=== PATIENT | female | born 1995 | race Caucasian/White ===

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

== ENCOUNTER 2017-03-29 23:59 | Emergency (ER) | payer BC ==
[2017-03-30 00:11] VITALS: BP 121/48
[2017-03-30] MEDS ORDERED: Sodium Chloride 0.9% 1,000 ML IV ONE (00:19)
[2017-03-30] MEDS ORDERED: Ondansetron 4 MG/2 ML SDV IVPUSH ONE (00:19)
--- NOTE | 2017-03-30 00:23 | EDM.PDOC ---
ED HPI GENERAL MEDICAL PROBLEM - General Chief Complaint: Gastrointestinal Problem Stated Complaint: FEVER Time Seen by Provider: 03/30/17 00:12 - History of Present Illness INITIAL COMMENTS - FREE TEXT/NARRATIVE: HISTORY AND PHYSICAL: History of present illness: Patient's 22-year-old female presents with a concern of nausea vomiting diarrhea 1 day she feels dehydrated she's had some upper abdominal discomfort with this she denies fever chills chest pain shortness of breath denies vaginal discharge or irregular bleeding or urinary symptoms Review of systems: As per history of present illness and below otherwise all systems reviewed and negative. Past medical history: As per history of present illness and as reviewed below otherwise noncontributory. Surgical history: As per history of present illness and as reviewed below otherwise noncontributory. Social history: No reported history of drug or alcohol abuse. Family history: As per history of present illness and as reviewed below otherwise noncontributory. Physical exam: HEENT: Atraumatic, normocephalic, pupils reactive, negative for conjunctival pallor or scleral icterus, mucous membranes moist, throat clear, neck supple, nontender, trachea midline. Lungs: Clear to auscultation, breath sounds equal bilaterally, chest nontender. Heart: S1S2, regular, negative for clicks, rubs, or JVD. Abdomen: Soft, nondistended, no localized tenderness. Negative for masses or hepatosplenomegaly. Negative for costovertebral tenderness. Pelvis: Stable nontender. Genitourinary: Deferred. Rectal: Deferred. Extremities: Atraumatic, negative for cords or calf pain. Neurovascular unremarkable. Neuro: Awake, alert, oriented. Cranial nerves II through XII unremarkable. Cerebellum unremarkable. Motor and sensory unremarkable throughout. Exam nonfocal. Diagnostics: CBC CMP amylase lipase UA hCG stool for C. difficile stool for O&P C&S chest x- ray H pylori Therapeutics: Terrence saline 1 L bolus Zofran 4 mg IV Impression: #1 vomiting/diarrhea with dehydration Definitive disposition and diagnosis as appropriate pending reevaluation and review of above. 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 (See Below) Other OB/BYN History: menomenorhagia Musculoskeletal History: Reports: None Neurological History: Reports: None Endocrine/Metabolic History: Reports: None - Infectious Disease History Infectious Disease History: Reports: Chicken Pox - Past Surgical History HEENT Surgical History: Reports: Adenoidectomy, Myringotomy w Tube(s), Tonsillectomy Cardiovascular Surgical History: Reports: None Respiratory Surgical History: Reports: None Social & Family History - Family History Family Medical History: Noncontributory Cardiac: Reports: Hypertension - Tobacco Use Smoking Status *Q: Never Smoker - Recreational Drug Use Recreational Drug Use: No ED ROS GENERAL - Review of Systems Review Of Systems: ROS reveals no pertinent complaints other than HPI. ED EXAM, GENERAL - Physical Exam Exam: See Below (See dictation) Course - Vital Signs Last Recorded V/S: Last Vital Signs Temp 36.5 C 03/30/17 00:09 Pulse 75 03/30/17 00:09 Resp 16 03/30/17 00:09 BP 121/48 L 03/30/17 00:09 Pulse Ox 98 03/30/17 00:09 - Orders/Labs/Meds Orders: Active Orders 24 hr Category Date Time Status Chest 1V Frontal [CR] Stat Exams 03/30/17 00:18 Taken CDIFF TOX A+B [OP] Stat Lab 03/30/17 00:18 Uncollected CULTURE STOOL + CAMPY+SHIGATOX [RM] Stat Lab 03/30/17 00:17 Uncollected UA W/MICROSCOPIC [URIN] Stat Lab 03/30/17 00:17 Uncollected Labs: Laboratory Tests 03/30/17 03/30/17 03/30/17 Range/Units 01:11 01:11 01:11 WBC 7.14 (4.0-11.0) K/uL RBC 4.86 (4.30-5.90) M/uL Hgb 14.9 (12.0-16.0) g/dL Hct 41.9 (36.0-46.0) % MCV 86.2 (80.0-98.0) fL MCH 30.7 (27.0-32.0) pg MCHC 35.6 (31.0-37.0) g/dL RDW Std Deviation 40.1 (28.0-62.0) fl RDW Coeff of Satnam 13 (11.0-15.0) % Plt Count 187 (150-400) K/uL MPV 9.50 (7.40-12.00) fL Neut % (Auto) 83.2 H (48.0-80.0) % Lymph % (Auto) 11.1 L (16.0-40.0) % [place] % (Auto) 5.6 (0.0-15.0) % Eos % (Auto) 0.0 (0.0-7.0) % Baso % (Auto) 0.1 (0.0-1.5) % Neut # (Auto) 5.9 H (1.4-5.7) K/uL Lymph # (Auto) 0.8 (0.6-2.4) K/uL [place] # (Auto) 0.4 (0.0-0.8) K/uL Eos # (Auto) 0.0 (0.0-0.7) K/uL Baso # (Auto) 0.0 (0.0-0.1) K/uL Nucleated RBC % 0.0 /100WBC Nucleated RBCs # 0 K/uL Sodium 138 (136-146) mmol/L Potassium 3.6 (3.5-5.1) mmol/L Chloride 106 (98-110) mmol/L Carbon Dioxide 22 (21-31) mmol/L BUN 12 (6.0-23.0) mg/dL Creatinine 0.9 (0.6-1.5) mg/dL Est Cr Clr Drug Dosing 96.96 mL/min Estimated GFR (MDRD) > 60.0 ml/min Glucose 107 (60-110) mg/dL Calcium 8.7 L (8.8-10.8) mg/dL Total Bilirubin 0.6 (0.1-1.5) mg/dL AST 20 (5-40) IU/L ALT 24 (8-54) IU/L Alkaline Phosphatase 38 L (40-150) Total Protein 7.4 (6.0-8.0) g/dL Albumin 3.9 (3.5-5.0) g/dL Globulin 3.5 (2.0-3.5) g/dL Albumin/Globulin Ratio 1.1 L (1.3-2.8) Amylase 68 (10-90) U/L Lipase 11 (7-80) U/L HCG, Qual NEGATIVE (NEG) H. pylori IgG Antibody (NEG) 03/30/17 Range/Units 01:11 WBC (4.0-11.0) K/uL RBC (4.30-5.90) M/uL Hgb (12.0-16.0) g/dL Hct (36.0-46.0) % MCV (80.0-98.0) fL MCH (27.0-32.0) pg MCHC (31.0-37.0) g/dL RDW Std Deviation (28.0-62.0) fl RDW Coeff of Satnam (11.0-15.0) % Plt Count (150-400) K/uL MPV (7.40-12.00) fL Neut % (Auto) (48.0-80.0) % Lymph % (Auto) (16.0-40.0) % [place] % (Auto) (0.0-15.0) % Eos % (Auto) (0.0-7.0) % Baso % (Auto) (0.0-1.5) % Neut # (Auto) (1.4-5.7) K/uL Lymph # (Auto) (0.6-2.4) K/uL [place] # (Auto) (0.0-0.8) K/uL Eos # (Auto) (0.0-0.7) K/uL Baso # (Auto) (0.0-0.1) K/uL Nucleated RBC % /100WBC Nucleated RBCs # K/uL Sodium (136-146) mmol/L Potassium (3.5-5.1) mmol/L Chloride (98-110) mmol/L Carbon Dioxide (21-31) mmol/L BUN (6.0-23.0) mg/dL Creatinine (0.6-1.5) mg/dL Est Cr Clr Drug Dosing mL/min Estimated GFR (MDRD) ml/min Glucose (60-110) mg/dL Calcium (8.8-10.8) mg/dL Total Bilirubin (0.1-1.5) mg/dL AST (5-40) IU/L ALT (8-54) IU/L Alkaline Phosphatase (40-150) Total Protein (6.0-8.0) g/dL Albumin (3.5-5.0) g/dL Globulin (2.0-3.5) g/dL Albumin/Globulin Ratio (1.3-2.8) Amylase (10-90) U/L Lipase (7-80) U/L HCG, Qual (NEG) H. pylori IgG Antibody NEGATIVE (NEG) Meds: Medications Discontinued Medications Generic Name Dose Route Start Last Admin Trade Name Freq PRN Reason Stop Dose Admin Sodium Chloride 1,000 mls @ 999 mls/hr 03/30/17 00:19 03/30/17 01:17 Normal Saline IV 03/30/17 01:19 999 mls/hr STAT ONE Administration Ondansetron HCl 4 mg 03/30/17 00:19 03/30/17 01:17 Zofran IVPUSH 03/30/17 00:20 4 mg ONETIME ONE Administration Departure - Departure Time of Disposition: 01:57 Disposition: Home, Self-Care 01 Condition: Good Clinical Impression: Gastroenteritis, Dehydration - Discharge Information Referrals: [facility] ORDER ENTRY TECHNICIAN [Primary Care Provider] - Forms: ED Department Discharge Additional Instructions: The following information is given to patients seen in the emergency department who are being discharged to home. This information is to outline your options for follow-up care. We provide all patients seen in our emergency department with a follow-up referral. The need for follow-up, as well as the timing and circumstances, are variable depending upon the specifics of your emergency department visit. If you don't have a primary care physician on staff, we will provide you with a referral. We always advise you to contact your personal physician following an emergency department visit to inform them of the circumstance of the visit and for follow-up with them and/or the need for any referrals to a consulting specialist. The emergency department will also refer you to a specialist when appropriate. This referral assures that you have the opportunity for followup care with a specialist. All of these measure are taken in an effort to provide you with optimal care, which includes your followup. Under all circumstances we always encourage you to contact your private physician who remains a resource for coordinating your care. When calling for followup care, please make the office aware that this follow-up is from your recent emergency room visit. If for any reason you are refused follow-up, please contact the [facility] emergency department at and asked to speak to the emergency department charge nurse. Push Fluids clear liquids as discussed Motrin or Tylenol as directed return as needed as discussed follow-up primary medical doctor within 2 days - My Orders Last 24 Hours: My Active Orders 03/30/17 00:17 CULTURE STOOL + CAMPY+SHIGATOX [RM] Stat UA W/MICROSCOPIC [URIN] Stat 03/30/17 00:18 Chest 1V Frontal [CR] Stat CDIFF TOX A+B [OP] Stat - Assessment/Plan Last 24 Hours: My Active Orders 03/30/17 00:17 CULTURE STOOL + CAMPY+SHIGATOX [RM] Stat UA W/MICROSCOPIC [URIN] Stat 03/30/17 00:18 Chest 1V Frontal [CR] Stat CDIFF TOX A+B [OP] Stat
[2017-03-30 01:45] LABS: CHLORIDE,CL 106 mmol/L (98-110); SODIUM,NA 138 mmol/L (136-146)
--- NOTE | 2017-03-30 20:16 | CR ---
EXAM DATE: 03/29/17 PATIENT'S AGE: 22 Patient: FAREED CADENA Facility: [place], [place] Site . Site : 1995 Study: XRay Chest [id number] 1:24:38 AM Ordering Physician: Seth Elliott Final Report: INDICATION: ABD PAIN TECHNIQUE: Chest 1 view. COMPARISON: None. FINDINGS: Cardiovascular and mediastinum: Heart size and vasculature are normal in caliber and appearance. Mediastinum is within normal limits. Lungs and pleural space: Lungs are clear. No sign of infiltrate or mass. No sign of pleural effusion. No pneumothorax. Bones and soft tissues: No significant findings. IMPRESSION: Unremarkable chest. Dictated by: Mg Bennett MD @ 03/30/2017 01:29:14 (Electronic Signature) Report Signed by Proxy. [facility]ENTER[facility]rent
== END 2017-03-30 02:23 | disposition home or self-care (01) ==
LOC: MW.ED 23:59
DX: K52.9 Noninfective gastroenteritis and colitis, unspecified (principal); E86.0 Dehydration; Z88.1 Allergy status to other antibiotic agents
CPT/HCPCS: 71010; 80053; 82150; 83690; 84703; 85025; 86677; 87804; 96361; 96374; 99284; J2405; J7040; 99283